=== PATIENT | female | born 1960 | race Hispanic/Latino ===

== ENCOUNTER → 2022-03-18 | Outpatient (CLI) | payer OTHER ==
[2022-03-18 13:37] LABS: CHOLESTEROL 126 mg/dL (<200); HDL CHOLESTEROL 65 mg/dL (35-85); LDL DIRECT 55 mg/dL (0-99); TRIGLYCERIDES 62 mg/dL (30-200)
== END | disposition home or self-care (01) ==
LOC: LAB 08:39
PROVIDERS: ATTEND Internal Medicine Cardiovascular Disease
DX: E78.5 Hyperlipidemia, unspecified (principal)
CPT/HCPCS: 36415; 80061